=== PATIENT | female | born 1990 | race Caucasian/White ===

== ENCOUNTER 2018-05-27 10:28 | Inpatient (IN) | payer OTHER ==
[~2018-05-27] VITALS: Ht 157.4 cm; Wt 83.7 kg
[2018-05-27 12:00] VITALS: BP 131/82
[2018-05-27 12:03] VITALS: BP 131/82
[2018-05-27] MEDS ORDERED: ESCITALOPRAM OX20 MG PO (12:35)
[2018-05-27 13:03] LABS: BASO # 0.1 10*3/uL (0.0-0.1); BASO % 0.8 % (0.0-1.0); EOS # 0.4 10*3/uL (0.0-0.4); EOS % 3.9 % (1.0-4.0); HEMATOCRIT 39.5 % (37.0-47.0); HEMOGLOBIN 13.2 g/dl (12.0-16.0); LYMPH # 2.7 10*3/uL (1.3-4.4); LYMPH % 30.5 % (27.0-41.0); MEAN CELL VOLUME 83.9 fl (81.0-99.0); MEAN CORPUSCULAR HGB CONC 33.4 g/dl (33.0-37.0); MEAN PLATELET VOLUME 10.2 fl (9.6-12.3); MONO # 0.5 10*3/uL (0.1-1.0); MONO % 5.8 % (3.0-9.0); NEUT # 5.3 10*3/uL (2.3-7.9); NEUT % 58.8 % (47.0-73.0); PLATELET COUNT AUTOMATED 323 10*3/uL (130-400); RED BLOOD COUNT 4.71 10*6/uL (4.10-5.10); RED CELL DISTRI WIDTH 12.6 % (0-14.5); WHITE BLOOD COUNT 8.9 10*3/uL (4.8-10.8)
[2018-05-27 13:21] LABS: ALBUMIN 3.8 gm/dl (3.1-4.5); ALKALINE PHOSPHATASE 86 U/L (45-117); BUN 10 mg/dl (7-24); CHLORIDE 103 mmol/L (98-107); CREATININE 0.76 mg/dL (0.55-1.02); POTASSIUM 4.1 mmol/L (3.5-5.1); SGOT/AST 23 IU/L (3-35); SGPT/ALT 29 U/L (12-78); SODIUM 137 mmol/L (136-145); TOTAL PROTEIN 7.7 gm/dL (6.4-8.2)
[2018-05-27 13:22] LABS: ETHYL ALCOHOL < 3.0 mg/dl (<3)
[2018-05-27 14:00] LABS: BILIRUBIN NEGATIVE (NEGATIVE); BLOOD NEGATIVE (NEGATIVE); CLARITY SL CLOUDY (CLEAR); COLOR YELLOW (YELLOW); GLUCOSE NEGATIVE (NEGATIVE); KETONE NEGATIVE (NEGATIVE); LEUKO ESTERASE NEGATIVE (NEGATIVE); NITRITE NEGATIVE (NEGATIVE); SPECIFIC GRAVITY >= 1.030 (1.005-1.030); UROBILINOGEN 0.2 E.U./dl (0.2-1.0)
[2018-05-27 14:08] LABS: URINE AMPHETAMINES < 1000 (1000ng/ml); URINE BARBITURATES < 200 (200ng/ml); URINE BENZODIAZEPINES > 200 (200ng/ml); URINE CANNABINOIDS (THC) < 50 (50ng/ml); URINE COCAINE < 300 (300ng/ml); URINE METHADONE < 300 (300ng/ml); URINE OPIATES < 300 (300ng/ml)
[2018-05-27 14:10] LABS: MUCOUS TRACE; RBC 0-2 rbc/hpf (0-2)
[2018-05-27 14:23] LABS: URINE PHENCYCLIDINE < 25 (25ng/ml)
[2018-05-27 16:00] VITALS: BP 116/77
[2018-05-27 20:00] VITALS: BP 118/77
[2018-05-28] VITALS (9 sets, daily range): BP systolic 97–133; BP diastolic 53–85
[2018-05-29] VITALS: BP 128/73
[2018-05-29 06:45] LABS: BASO # 0.1 10*3/uL (0.0-0.1); BASO % 0.7 % (0.0-1.0); EOS # 0.4 10*3/uL (0.0-0.4); EOS % 5.2 % (1.0-4.0); HEMATOCRIT 36.2 % (37.0-47.0); HEMOGLOBIN 11.7 g/dl (12.0-16.0); LYMPH # 2.7 10*3/uL (1.3-4.4); LYMPH % 32.3 % (27.0-41.0); MEAN CELL VOLUME 85.2 fl (81.0-99.0); MEAN CORPUSCULAR HGB 27.5 pg (27.0-31.0); MEAN CORPUSCULAR HGB CONC 32.3 g/dl (33.0-37.0); MEAN PLATELET VOLUME 10.5 fl (9.6-12.3); MONO # 0.7 10*3/uL (0.1-1.0); MONO % 7.8 % (3.0-9.0); NEUT # 4.5 10*3/uL (2.3-7.9); NEUT % 53.8 % (47.0-73.0); PLATELET COUNT AUTOMATED 311 10*3/uL (130-400); RED BLOOD COUNT 4.25 10*6/uL (4.10-5.10); RED CELL DISTRI WIDTH 12.7 % (0-14.5); WHITE BLOOD COUNT 8.3 10*3/uL (4.8-10.8)
[2018-05-29 07:20] LABS: CHLORIDE 106 mmol/L (98-107); POTASSIUM 4.2 mmol/L (3.5-5.1); SODIUM 140 mmol/L (136-145)
[2018-05-29 07:42] LABS: BUN 7 mg/dl (7-24); CREATININE 0.72 mg/dL (0.55-1.02)
[2018-05-29 08:00] VITALS: BP 128/85
[2018-05-29 12:00] VITALS: BP 105/71
[2018-05-29 16:00] VITALS: BP 126/79
[2018-05-29 20:00] VITALS: BP 133/84
[2018-05-30] VITALS: BP 97/55
[2018-05-30 08:00] VITALS: BP 110/64
[2018-05-30] MEDS ORDERED: ATARAX,VISTARIL50 MG PO (10:29)
[2018-05-30] MEDS ORDERED: ZOFRAN 4 MG ED2 TAB PO (10:29)
[2018-05-30] MEDS ORDERED: DOXYCYCLINE100 M3 PO (10:31)
== END 2018-05-30 12:38 | disposition home or self-care (01) | DRG 580 ==
LOC: EDHOLD 10:28 → 4E 10:28
PROVIDERS: Internal Medicine
PROC: 0J9D0ZZ Drainage of Right Upper Arm Subcutaneous Tissue and Fascia, Open Approach (ICD-10-PCS; principal; 2018-05-28)
DX: L02.413 Cutaneous abscess of right upper limb (principal); F11.23 Opioid dependence with withdrawal; F13.10 Sedative, hypnotic or anxiolytic abuse, uncomplicated; R03.0 Elevated blood-pressure reading, without diagnosis of hypertension; F32.9 Major depressive disorder, single episode, unspecified; E66.09 Other obesity due to excess calories; R22.31 Localized swelling, mass and lump, right upper limb; F41.9 Anxiety disorder, unspecified; Z68.33 Body mass index [BMI] 33.0-33.9, adult; Z87.891 Personal history of nicotine dependence; Z83.3 Family history of diabetes mellitus; Z88.6 Allergy status to analgesic agent; Z90.49 Acquired absence of other specified parts of digestive tract; Z79.899 Other long term (current) drug therapy